=== PATIENT | female | born 1970 | race Caucasian/White ===

== ENCOUNTER 2023-03-03 14:06 | Emergency (ER) | payer BC ==
[2023-03-03 14:36] VITALS: BP 108/64; PULSE 113
[2023-03-03] MEDS: Amoxicillin/Clavulanate K 875-125 MG Tab PO ONE (17:30)
[2023-03-03] MEDS: Amoxicillin/Clavulanate K 875-125 MG Tab ONE (17:34)
== END 2023-03-03 17:32 | disposition home or self-care (01) ==
LOC: LB.ED 14:06
DX: J01.90 Acute sinusitis, unspecified (principal); B96.89 Other specified bacterial agents as the cause of diseases classified elsewhere; Z88.8 Allergy status to other drugs, medicaments and biological substances
CPT/HCPCS: 36415; 80053; 81003; 85025; 87804; 87804-59; 99283; 99284; A9270-GY